=== PATIENT | female | born 1995 | race Caucasian/White ===

== ENCOUNTER 2016-06-28 22:19 | Emergency (ER) | payer SELFPAY ==
[2016-06-28 23:31] LABS: ABSOLUTE EOSINOPHILS # (AUTO) 0.3 10^3/uL (0.0-0.6); ABSOLUTE LYMPHOCYTES (AUTO) 3.1 10^3/uL (0.5-4.7); ABSOLUTE MONOCYTES (AUTO) 0.8 10^3/uL (0.1-1.4); ABSOLUTE NEUT (AUTO) 7.7 10^3/uL (1.7-8.2); BASOPHILS % (AUTO) 0.3 % (0-2); EOSINOPHILS % (AUTO) 2.5 % (0-6); HEMATOCRIT 43.9 % (36.0-47.0); HEMOGLOBIN 14.6 g/dL (12.0-15.5); HGB HCT DIFFERENCE -0.1; LYMPHOCYTES % (AUTO) 26.1 % (13-45); MEAN CORPUSCULAR HEMOGLOBIN 30.9 pg (27.0-33.4); MEAN CORPUSCULAR HGB CONC 33.2 g/dL (32.0-36.0); MEAN CORPUSCULAR VOLUME 93 fl (80-97); MONOCYTES % (AUTO) 6.4 % (3-13); RED BLOOD COUNT 4.71 10^6/uL (3.72-5.28); RED CELL DISTRIBUTION WIDTH 13.6 % (11.5-14.0); SEGMENTED NEUTROPHILS % (AUTO) 64.7 % (42-78); WHITE BLOOD COUNT 11.9 10^3/uL (4.0-10.5)
[2016-06-28 23:42] LABS: APPEARANCE,URINE SLIGHTLY-CLOUDY; BILIRUBIN,URINE NEGATIVE (NEGATIVE); GLUCOSE, URINE NEGATIVE (NEGATIVE); KETONES,URINE NEGATIVE (NEGATIVE); LEUKOCYTE ESTERASE,URINE NEGATIVE (NEGATIVE); NITRITE,URINE NEGATIVE (NEGATIVE); PROTEIN,URINE NEGATIVE (NEGATIVE); URINE SPECIFIC GRAVITY 1.017; UROBILINOGEN,URINE NEGATIVE mg/dL (<2.0)
[2016-06-28 23:49] LABS: ALANINE AMINOTRANSFERASE 41 U/L (9-52); ALBUMIN 4.3 g/dL (3.5-5.0); ALKALINE PHOSPHATASE 70 U/L (38-126); ANION GAP 12 (5-19); ASPARTATE AMINO TRANSFERASE 21 U/L (14-36); BILIRUBIN,DIRECT 0.1 mg/dL (0.0-0.4); BILIRUBIN,TOTAL 0.4 mg/dL (0.2-1.3); BLOOD UREA NITROGEN 11 mg/dL (7-20); CALCIUM 9.4 mg/dL (8.4-10.2); CARBON DIOXIDE 27 mmol/L (22-30); CHLORIDE 105 mmol/L (98-107); CREATININE RESULT 0.67 mg/dL (0.52-1.25); GLUCOSE 94 mg/dL (75-110); POTASSIUM 4.1 mmol/L (3.6-5.0); SODIUM 143.6 mmol/L (137-145)
[2016-06-28 23:53] LABS: ALCOHOL < 10 mg/dL (NONE DETECTED)
[2016-06-29] LABS: URINE BARBITURATES SCREEN NEGATIVE; URINE METHADONE SCREEN NEGATIVE; URINE OPIATES LOW NEGATIVE; URINE PHENCYCLIDINE SCREEN NEGATIVE
--- NOTE | 2016-06-29 00:23 | ER Document Report ---
ED General - General Chief Complaint: Psych Problem Stated Complaint: PSYCH EVALUATION Notes: Patient is 21-year-old female presents with complaint of having depression and thoughts suicide. No other complaints this time. Patient is otherwise healthy and has no medical problems. She says she's been doing with depression "my whole life". She does not have a current plan of how she will herself. She says that recently she lost her job and she is out of money she's scared that she will be evicted lose her animals in her car. She has some friends. She does have family in the area but the family is not very close to her. TRAVEL OUTSIDE OF THE [place] IN LAST 30 DAYS: No - Related Data Allergies/Adverse Reactions: No Known Allergies Allergy (Verified 01/26/15 06:23) Past Medical History - Social History Smoking Status: Never Smoker Frequency of alcohol use: None Drug Abuse: None Family History: Reviewed & Not Pertinent Patient has suicidal ideation: Yes Patient has homicidal ideation: No Renal/ Medical History: Denies: Hx Peritoneal Dialysis - Immunizations Hx Diphtheria, Pertussis, Tetanus Vaccination: Yes Review of Systems - Review of Systems Notes: My Normal Review Basic REVIEW OF SYSTEMS: CONSTITUTIONAL : Denies fever, chills, or sweats. Denies recent illness. EENT: Denies eye, ear, throat, or mouth pain or symptoms. Denies nasal or sinus congestion. RESPIRATORY: Denies cough, cold, or chest congestion. Denies shortness of breath, difficulty breathing, or wheezing. GASTROINTESTINAL: Denies abdominal pain. Denies nausea, vomiting, or diarrhea. Denies constipation. Last BM: MUSCULOSKELETAL: Denies neck or back pain or joint pain or swelling. SKIN: Denies rash or skin lesions. NEUROLOGICAL: Denies altered mental status or loss of consciousness. Denies headache. Denies weakness or paralysis or loss of use of either side. Denies problems with gait or speech. Denies sensory or motor loss. PSYCHIATRIC: Depression. Suicidal thoughts. ALL OTHER SYSTEMS REVIEWED AND NEGATIVE. Physical Exam - Vital signs Vitals: Temp Pulse Resp BP Pulse Ox 98.4 F 69 16 112/81 99 06/28/16 22:53 06/28/16 22:53 06/28/16 22:53 06/28/16 22:53 06/28/16 22:53 - Notes Notes: General Appearance: Well nourished, alert, cooperative, no acute distress, no obvious discomfort. Well-appearing. Vitals: reviewed, See vital signs table. Eyes: PERRL, EOMI, Conjuctiva clear Mouth: No decreasd moisture Neck: Supple, no neck tenderness, No thyromegaly Lungs: No wheezing, No rales, No rhonci, No accessory muscle use, good air exchange bilaterally. Heart: Normal rate, Regular rythm, No murmur, no rub Abdomen: Normal BS, soft, No rigidity, No abdominal tenderness, No guarding, no rebound, no abdominal masses, no organomegaly Extremities: strength 5/5 in all extremities, good pulses in all extremities, no swelling or tenderness in the extremities, no edema. Neuro: speech clear, oriented x 3, normal affect, responds appropriately to questions. Course - Vital Signs Vital signs: Temp Pulse Resp BP Pulse Ox 98.4 F 69 16 112/81 99 06/28/16 22:53 06/28/16 22:53 06/28/16 22:53 06/28/16 22:53 06/28/16 22:53 - Laboratory Result Diagrams: 06/28/16 22:55 06/28/16 22:55 Laboratory results interpreted by me: 06/28/16 06/28/16 22:55 22:55 WBC 11.9 H Salicylates < 1.0 L Acetaminophen < 10 L - EKG Interpretation by Me Additional EKG results interpreted by me: 06/29/16 00:23 EKG is reviewed and interpreted by me. EKG shows sinus rhythm with rate of [address] segment elevation or depression. No ischemic T wave inversions. PA interval, QRS duration, QTC was are within normal range. No old EKG available for comparison. - Transfer of Care Notes: 06/29/16 00:30 Patient is medically stable for psychiatric evaluation and placement. I will not place her on involuntary commitment paperwork as she is voluntary, she is very cooperative, and she has no actual suicidal plan. Dictation of this chart was performed using voice recognition software; therefore, there may be some unintended grammatical errors. Discharge - Discharge Clinical Impression: Depression Qualifiers: Depression Type: unspecified Qualified Code(s): F32.9 - Major depressive disorder, single episode, unspecified Condition: Stable Disposition: PSYCH HOSP/UNIT
[2016-06-29] MEDS ORDERED: HYDROXYZINE PAMOATE 50 MG CAPSULE PO ONE (02:32)
[2016-06-29 07:10] VITALS: BP 118/72
--- NOTE | 2016-06-29 08:14 | EKG REPORT ---
SEVERITY:- NORMAL ECG - SINUS ARRHYTHMIA, RATE 51-89 : Confirmed by: Hubert Howard MD 29-Jun-2016 08:13:34
--- NOTE | 2016-06-29 09:19 | ER Document Report ---
Doctor's Note Notes: 06/29/16 09:19 Patient sleeping comfortably on stretcher, no complaints at present time, no needs at this time, vital signs are stable, pending likely discharge with resources
--- NOTE | 2016-06-29 10:14 | ER Document Report ---
ED Psych Disorder / Suicide - General Information source: Patient, [facility] Records TRAVEL OUTSIDE OF THE [place] IN LAST 30 DAYS: No - HPI Patient complains to provider of: Suicidal ideation - no plan Onset: Other Onset was: Gradual Suicide Risk Factors: Depressed, No spouse Situational problems related to: Lost job, Other - housing probs Normal mood: Yes Associated symptoms: Normal affect, Normal mood, Depressed, Uncooperative Similar symptoms previously: Yes - x 1 year per patient Recently seen / treated by doctor: No <WICHO APARICIO - Last Filed: 06/29/16 10:06> <RASHEEDA LEVY - Last Filed: 06/29/16 10:15> - General Chief Complaint: Psych Problem Stated Complaint: PSYCH EVALUATION - HPI Notes: Patient is a 21 year old female who presented voluntarily overnight seeking assistance with her depressive symptoms/requesting resources. Patient did endorse passive thoughts of suicidal ideations, but denied plan or means and was therefor held voluntarily. Patient this morning is challenging to engage in conversation. She was asked to sit up and communicate and refused stating she did not want to. Patient provided minimal answers to questions. Patient did divulge she has had counseling in the past "for things that happened." Patient reports shaan has been depressed her whole life. She states she does not want to by suicide. Discussed with patient any supports. Patient states it was a rough month because she lost her job, "because I'm a piece of sh." Patient was asked to clarify, which she states she quit her job, and denies she was fired. Patient states she worked at [employer] and could not do it. Patient states she has an appointment today with [facility] in [place]. She states she prefers to go up there "because people in [place] are a holes." Patient reports her appointment is at 1020 this morning. Made patient aware that it is 1000 now and encouraged her to contact to reschedule. Patient stated, "yeah I'm not going to do that." Continued to attempt to engage patient in conversation; however, she pulled the blanket over her head and stopped all communication. Patient's father, Edgardo Jolly : number is not working Patient is A&O. Mood is irritable with congruent affect. Patient denies SI/HI. Patient denies A/V H; delusions not noted. Thought processes were guarded. Conversational speech was WNL for prosody.Intellectual abilities were estimated within average range. Attention and focus were poor. Insight, judgment, and impulse control were poor. Unspecified Depressive Disorder, per history Patient is psychiatrically cleared and recommended for discharge. Patient states she had an appointment at [facility] in [place] today, and was encouraged to call and reschedule; however, refused to do so. Patient is strongly encouraged to follow up with [facility] and engage in services. Patient was guarded and presented unwilling to engage in conversation. Patient did deny suicidal ideations and does not meet criteria for IVC. I consulted with Dr. Friedman in regards to care and management of this patient. (WICHO APARICIO) - Related Data Allergies/Adverse Reactions: No Known Allergies Allergy (Verified 06/29/16 06:32) Past Medical History - General Information source: Patient, [facility] Records - Social History Smoking Status: Never Smoker Frequency of alcohol use: None Drug Abuse: None Family History: Reviewed & Not Pertinent Patient has suicidal ideation: No - denied this morning Patient has homicidal ideation: No Renal/ Medical History: Denies: Hx Peritoneal Dialysis - Immunizations Hx Diphtheria, Pertussis, Tetanus Vaccination: Yes <WICHO APARICIO - Last Filed: 06/29/16 10:06> Course - Laboratory Result Diagrams: 06/28/16 22:55 06/28/16 22:55 <WICHO APARICIO - Last Filed: 06/29/16 10:06> - Laboratory Result Diagrams: 06/28/16 22:55 06/28/16 22:55 <RASHEEDA LEVY - Last Filed: 06/29/16 10:15> - Vital Signs Vital signs: Temp Pulse Resp BP Pulse Ox 97.5 F 78 16 118/72 100 06/29/16 07:00 06/29/16 07:00 06/29/16 07:00 06/29/16 07:00 06/29/16 07:00 - Laboratory Laboratory results interpreted by me: 06/28/16 06/28/16 22:55 22:55 WBC 11.9 H Salicylates < 1.0 L Acetaminophen < 10 L Discharge <WICHO APARICIO - Last Filed: 06/29/16 10:06> <RASHEEDA LEVY - Last Filed: 06/29/16 10:15> - Discharge Clinical Impression: Depression Qualifiers: Depression Type: unspecified Qualified Code(s): F32.9 - Major depressive disorder, single episode, unspecified Condition: Stable Disposition: HOME, SELF-CARE Additional Instructions: Counseling Services It has been recommended that you seek professional counseling to assist you with the stresses that you are experiencing. Most people at some time in their lives experience personal problems with which they need help. Pride and feeling that one can't be helped keep a lot of people from the benefits of counseling. Depression Your evaluation reveals that you have mental depression. While symptoms may be vague, they often include disturbance of sleep, fatigue, loss of appetite , and general loss of interest in life. While depression may be a side effect of drugs, or a reaction to a major change in your life, many cases have no known cause. If depression is acute, and related to a major loss in your life, you can expect it to clear completely with time. If you have been depressed a long time , are prone to repeated bouts of depression or low mood, or have been thinking of suicide, get help. Depression can be treated with anti-depressant medication and counselling. Long-term depression will often take a few weeks to clear, even with appropriate medication. Follow-up care is important. Contact your physician, the hospital emergency center, crisis line, or your counsellor if you are losing control or having self-destructive thoughts. Please follow up with [facility] and reschedule your appointment. Here in the ED, you declined offers of assistance. You have been provided a list of resources to follow up with out patient providers, to include mobile crisis. Please return to the ED should your symptoms worsen.
== END 2016-06-29 10:28 | disposition home or self-care (01) ==
LOC: ER 22:19
DX: F32.9 Major depressive disorder, single episode, unspecified (principal)
CPT/HCPCS: 36415; 80053; 80307; 81001; 85025; 93005; 93010; 99284

== ENCOUNTER 2017-05-25 11:34 | Emergency (ER) | payer SELFPAY ==
--- NOTE | 2017-05-25 13:12 | ER Document Report ---
ED General - General Chief Complaint: Lower Abdominal Pain Stated Complaint: ABDOMINAL PAIN Time Seen by Provider: 05/25/17 13:10 Mode of Arrival: Ambulatory Information source: Patient Notes: Patient is a 22-year-old female with bilateral lower abdominal/adnexal pain that started today around 945 this morning. She did vomit once which she states was due to how severe the pain was. She states she has had the same pain intermittently since she was 15 years old. She she states that it does not occur monthly but is somewhat random in nature and is not consistently associated with her menstrual cycles or ovulation. She reports normal five-day periods with no heavy bleeding or pain associated with her menstrual cycle. She has not tried any medications for this. She is sexually active and states her last menstrual period was 04-26-17. Denies any fever, chills, diarrhea, vaginal discharge, vaginal bleeding, dysuria hematuria. TRAVEL OUTSIDE OF THE [place] IN LAST 30 DAYS: No - Related Data Allergies/Adverse Reactions: No Known Allergies Allergy (Verified 05/25/17 11:38) Past Medical History - General Information source: Patient - Social History Smoking Status: Current Every Day Smoker Chew tobacco use (# tins/day): No Frequency of alcohol use: Occasional Drug Abuse: None Family History: Reviewed & Not Pertinent Patient has suicidal ideation: No Patient has homicidal ideation: No Renal/ Medical History: Denies: Hx Peritoneal Dialysis Psychiatric Medical History: Reports: Hx Depression - Immunizations Hx Diphtheria, Pertussis, Tetanus Vaccination: Yes Review of Systems - Review of Systems Constitutional: See HPI EENT: No symptoms reported Cardiovascular: No symptoms reported Respiratory: No symptoms reported Gastrointestinal: See HPI Genitourinary: See HPI Female Genitourinary: See HPI Musculoskeletal: No symptoms reported Skin: No symptoms reported Hematologic/Lymphatic: No symptoms reported Neurological/Psychological: No symptoms reported Physical Exam - Vital signs Vitals: Temp Pulse Resp BP Pulse Ox 99.2 F 83 18 112/77 99 05/25/17 11:42 05/25/17 11:42 05/25/17 11:42 05/25/17 11:42 05/25/17 11:42 - Notes Notes: PHYSICAL EXAM: CONSTITUTIONAL: Alert and oriented, well-appearing and in no acute distress. HENT: Normocephalic, atraumatic. Trachea midline. Uvula midline. Moist mucous membranes. EYES: Pupils equal round and reactive to light, EOM intact. Sclera anicteric, conjunctiva are normal. No entrapment. NECK: supple without lymphadenopathy. No midline tenderness or paraspinous muscle spasms. No step-offs or deformities. ROM intact. N HEART: Regular rate and rhythm without murmurs. LUNGS: CTAB and equal. No wheezes, rales or rhonchi. GI: Normactive bowel sounds. Abdomen is soft, mild tenderness to left lower quadrant, non-distended. No organomegaly. no CVAT. No rebound or guarding. Negative McBurney's point tenderness, negative Jacob sign. Negative Rovsing's sign, negative Psoas sign. EXTREMITIES: no bony tenderness, erythema, edema, ecchymosis or deformity. Normal range of motion, no pitting edema. No cyanosis. Cap Refill <3 seconds. NEURO: Cranial nerves grossly intact. Normal sensory/motor exams. PSYCH: Normal mood, normal affect. SKIN: Warm and dry. Normal turgor. No rashes or lesions noted. Course - Re-evaluation Re-evalutation: 05/25/17 13:12 Patient seen and examined. Well-hydrated, well-appearing, abdomen nonsurgical on exam. VSS, no acute distress. Negative Jacob's, negative Rovsing's negative psoas, and no peritonitis noted. Will obtain urinalysis and continue to monitor. Patient is lying in bed without discomfort. 05/25/17 14:37 Reviewed lab studies - neg urine , UA shows leuk est, 3+ WBC. Will treat for UTI with antibiotics. Low suspicion for appendicitis, ovarian torsion/ rupture or other acute intra-abdominal infection or other emergency condition at this time. At this time, will discharge with return precautions and follow-up recommendations. Verbal discharge instructions given at the bedside and opportunity for questions given. Medication warnings reviewed. Patient is in agreement with this plan and has verbalized understanding of return precautions and the need for primary care follow-up in the next 24-72 hours. - Vital Signs Vital signs: Temp Pulse Resp BP Pulse Ox 98.2 F 81 16 110/76 100 05/25/17 14:46 05/25/17 14:46 05/25/17 14:46 05/25/17 14:46 05/25/17 14:46 - Laboratory Laboratory results interpreted by me: 05/25/17 13:25 Urine Blood SMALL H Ur Leukocyte Esterase LARGE H Discharge - Discharge Clinical Impression: Acute cystitis with hematuria Condition: Stable Disposition: HOME, SELF-CARE Additional Instructions: URINARY TRACT INFECTION: Your evaluation indicates that you have a urinary tract infection. This is due to germs growing in the bladder. This is a common problem. This infection usually responds quickly to antibiotics. Your antibiotic should be taken exactly as prescribed. Drink plenty of fluids -- three to four quarts a day. Occasionally, a bladder anesthetic will be prescribed to help stop the feeling of urgency until the antibiotic has a chance to clear the infection. This may cause your urine to be dark orange. Certain urine infections require a culture. If the doctor obtained a culture, the results will be back in two days. You should call to see if a change in treatment is needed. A repeat urinalysis after you finish treatment is often recommended. The physician will let you know if further testing is required. Call the doctor if you develop fever, chills, flank pain, inability to urinate, or blood in the urine. ANTIBIOTIC THERAPY: You have been given an antibiotic prescription. It's important that you take all the medication, unless instructed otherwise by your physician. Failure to complete the entire course can result in relapse of your condition. Common side effects of antibiotics include nausea, intestinal cramping, or diarrhea. Women may develop vaginal yeast infections, and babies can get yeast (thrush) in the mouth following the use of antibiotics. Contact your physician if you develop significant side effects from this medication. Allergy to this antibiotic can result in hives, wheezing, faintness, or itching. If symptoms of allergy occur, stop the medication and call the doctor. TRIMETHOPRIM-SULFA: You have been given a prescription for trimethoprim-sulfa (TMS, Septra, Bactrim). This is a combination antibiotic of the sulfa class, often used for urinary tract infections, middle ear infections, bronchitis, shigella intestinal infection, and Pneumocystis pneumonia. TMS is usually well-tolerated. Occasional side effects include nausea and decreased appetite. Septra is not recommended for infants less than two months of age. Do not take this medication if you have experienced severe side effects or allergy to sulfa medicine. You should stop this medicine at once and contact your physician if you develop any rash, joint pain, shortness of breath, bruising, or jaundice ( yellow color in the skin), or if you develop any other new or unusual symptoms. FOLLOW-UP CARE: If you have been referred to a physician for follow-up care, call the physician s office for an appointment as you were instructed or within the next two days. If you experience worsening or a significant change in your symptoms, notify the physician immediately or return to the Emergency Department at any time for re-evaluation. Prescriptions: Naproxen [Naprosyn 250 mg Tablet] 250 mg PO BID #20 tablet Sulfamethoxazole/Trimethoprim [Bactrim Ds Tablet] 1 tab PO BID 7 Days tablet Forms: Return to Work
[2017-05-25 14:07] LABS: APPEARANCE,URINE SLIGHTLY-CLOUDY; BILIRUBIN,URINE NEGATIVE (NEGATIVE); COLOR,URINE YELLOW; GLUCOSE, URINE NEGATIVE (NEGATIVE); KETONES,URINE NEGATIVE (NEGATIVE); LEUKOCYTE ESTERASE,URINE LARGE (NEGATIVE); NITRITE,URINE NEGATIVE (NEGATIVE); PROTEIN,URINE NEGATIVE (NEGATIVE); URINE SPECIFIC GRAVITY 1.026; UROBILINOGEN,URINE NEGATIVE mg/dL (<2.0)
[2017-05-25 14:47] VITALS: BP 110/76
== END 2017-05-25 14:47 | disposition home or self-care (01) ==
LOC: ER 11:34
DX: N30.01 Acute cystitis with hematuria (principal); F17.200 Nicotine dependence, unspecified, uncomplicated
CPT/HCPCS: 81001; 81025; 87086; 99284